=== PATIENT | male | born 1945 | race Caucasian/White ===

== ENCOUNTER 2018-01-13 22:07 | Inpatient (IN) | payer OTHER ==
[~2018-01-13] VITALS: Ht 172.7 cm; Wt 94.6 kg
[~2018-01-13 22:07] MED LIST: ASPIRIN81 M2 PO; CENTRUM SILVER1 EAC3 PO; FISH OIL 1,2001 EAC4 PO; IRON325 M1 PO; LIPITOR40 MG PO; LOPRESSOR25 MG PO; LOSARTAN-HCTZ1 EAC1 PO; MYSOLINE50 MG PO
[2018-01-14 12:44] VITALS: BP 182/82
[2018-01-14 19:18] VITALS: BP 160/80
[2018-01-15] VITALS (7 sets, daily range): BP systolic 135–163; BP diastolic 66–80
[2018-01-15 05:49] LABS: MCV 93.2 FL (86-99)
[2018-01-15 05:50] LABS: HEMOGLOBIN 12.6 G/DL (12.5-16.6)
[2018-01-15 06:03] LABS: CHLORIDE 104 MEQ/L (99-109); GFR ESTIMATE (CALCULATED) > 59 mL/min/ (58.99-99999); GLUCOSE 161 mg/dL (70-99); POTASSIUM 4.4 MEQ/L (3.7-5.4); SODIUM 140 MEQ/L (136-147); UREA NITROGEN (BUN) 19 mg/dL (9-23)
[2018-01-16 05:25] LABS: HEMATOCRIT 33.2 % (38.0-50.0); HEMOGLOBIN 11.5 G/DL (12.5-16.6); MCV 92.5 FL (86-99)
[2018-01-16 07:31] VITALS: BP 174/77
[2018-01-16] MEDS ORDERED: OXYCODONE HCL5 MG PO (09:42)
[2018-01-16] MEDS ORDERED: CELECOXIB200 MG PO (09:42)
[2018-01-16] MEDS ORDERED: LOVENOX30 MG/0.3 SC (09:42)
[2018-01-16 13:47] VITALS: BP 122/68
== END 2018-01-16 13:53 | disposition home or self-care (01) | DRG 470 ==
LOC: ENRESERV 22:07 → 2SOUTH 01-14 10:32 → ENRESERV 01-14 16:57 → 3EAST 01-14 19:13
PROVIDERS: Orthopaedic Surgery
PROC: 0SRC0J9 Replacement of Right Knee Joint with Synthetic Substitute, Cemented, Open Approach (ICD-10-PCS; principal; 2018-01-14)
DX: M17.11 Unilateral primary osteoarthritis, right knee (principal); Z68.31 Body mass index [BMI] 31.0-31.9, adult
CPT/HCPCS: 80048; 85014; 85018; 97530 GP; C1713; J0131; J0690; J1650; J1885; J2795; J3010; J7050